=== PATIENT | female | born 1995 | race Caucasian/White ===

== ENCOUNTER 2018-05-29 12:23 | Emergency (ER) | payer MEDICAID, SELFPAY ==
[2018-05-29 12:26] VITALS: BP 118/74; PULSE 81; RESP 17; TEMP 37.2; O2SAT 96; BMI 23.2
--- NOTE | 2018-05-29 12:50 | RAD_ITS ---
STUDY: X-RAY - ABDOMEN/PELVIS REASON FOR EXAM: Female, 23 years old. Constipation. TECHNIQUE: Single AP view of the abdomen / pelvis. COMPARISON: None. FINDINGS: Normal visualized lung bases. No dilated small bowel. Mild gaseous distention of the colon. There is no demonstrated free abdominal air. The visualized liver, spleen and kidneys are grossly normal in size and morphology. There is electronic stimulator device in the left lower quadrant. There is mild levoscoliosis of the lumbar spine. RAD/Abdomen Single View IMPRESSION: Mild gaseous distention of the colon. No small bowel distention. Electronically Signed: Zachary Lemon MD at 14:05 EDT , Service support ,
--- NOTE | 2018-05-29 14:05 | ED.VISSUMM ---
- ER Visit Summary Date of Service: 05/29/18 Chief Complaint: Constipation History of Present Illness: The patient is a 23 F who presents with constipation. She has had this for the past 3 weeks. She has diffuse abdominal cramping. She is also been having some nausea and vomiting with it. She has tried fleets enema, magnesium citrate and increase her MiraLAX dose and is not helping. She does have a history of constipation. She has a history of cerebral palsy. The mother called the PCP office and they would not give her a prescription for GoLYTELY and they told her to come here. Physical Examination: Vital signs reviewed. HEENT exam unremarkable. Heart is regular rate and rhythm without murmurs. Lungs are clear to auscultation. Abdomen is soft with mild diffuse tenderness. Extremities reveal no edema. Skin exam normal. Neurologic exam is at baseline for this patient Test Results: KUB per my interpretation reveals nonspecific bowel gas pattern Emergency Department Course and Treatment: Patient does have some stool on her x-ray. No evidence of obstruction. Patient will be given GoLYTELY and Zofran ODT for home. She will increase hydration will follow up with her PCP Treatment Plan: [] Disposition: Discharge Impression: Constipation This note was generated with [employer] dictation software. It may contain incorrect words, spelling, and punctuation that were not noted in review of the chart prior to signing ED Disposition - Plan for ED Patient: Chief Complaint: Constipation Referrals: Vamshi Pittman DO [Primary Care Provider] -
--- NOTE | 2018-05-29 14:07 | ED.DEP ---
ED Disposition - Plan for ED Patient: Disposition: Home or Assisted Living Chief Complaint: Constipation Instructions: ED Constipation Prescriptions: Ondansetron [Zofran Odt] 4 mg PO Q8H PRN PRN #10 tab PRN Reason: Nausea Peg 3350/Na Sulf,Bicarb,Cl/KCl [Golytely Solution] 4,000 ml PO DAILY #1 soln.recon Referrals: Vamshi Pittman DO [Primary Care Provider] -
== END 2018-05-29 14:13 | disposition home or self-care (01) ==
PROVIDERS: Emergency Provider Emergency Medicine; Family Provider Pediatrics; PCP Pediatrics
DX: K59.00 Constipation, unspecified (principal); G80.9 Cerebral palsy, unspecified; Z79.899 Other long term (current) drug therapy
CPT/HCPCS: 74018; 99282